=== PATIENT | female | born 1980 | race Caucasian/White ===

== ENCOUNTER → 2017-04-09 | Outpatient (CLI) | payer BC ==
[~2017-04-09] MED LIST: AMOXICILLIN500 MG PO; AVPAK AZITHROM250 M1 PO; BIAXIN500 MG PO; CLARITIN-D 10 M1 T21 PO; CLARITIN10 MG PO; FLONASE 0.05% 121 EA NAS; MOTRIN800 MG PO; PHENERGAN W/ DE30 ML PO; PREDNICOT10 MG PO; ZITHROMAX Z PA250 MG PO
[2017-04-09 16:07] LABS: EST GLOM FILT AFRICAN AMERICAN > 60 ml/min
== END | disposition home or self-care (01) ==
LOC: LAB 14:32
PROVIDERS: Internal Medicine
DX: Z01.818 Encounter for other preprocedural examination (principal)

== ENCOUNTER → 2017-04-10 | Outpatient (CLI) | payer BC | END | disposition home or self-care (01) | LOC: CT 02:45 | DX: N83.202 Unspecified ovarian cyst, left side (principal); D13.6 Benign neoplasm of pancreas; N30.00 Acute cystitis without hematuria; N94.89 Other specified conditions associated with female genital organs and menstrual cycle ==

== ENCOUNTER → 2017-04-22 | Outpatient (CLI) | payer BC | END | disposition home or self-care (01) | LOC: US 11:00 | DX: N83.209 Unspecified ovarian cyst, unspecified side (principal); N94.89 Other specified conditions associated with female genital organs and menstrual cycle ==

== ENCOUNTER 2020-04-17 06:29 | Emergency (ER) | payer SELFPAY ==
[~2020-04-17] VITALS: Ht 165.1 cm; Wt 84.8 kg
[2020-04-17 06:38] VITALS: BP 134/73
[2020-04-17 06:57] LABS: HEMATOCRIT 38.9 % (37.0-47.0); MEAN CELL VOLUME 89.4 fl (81.0-99.0); MEAN CORPUSCULAR HGB 29.4 pg (27.0-31.0); MEAN CORPUSCULAR HGB CONC 32.9 g/dl (33.0-37.0); MEAN PLATELET VOLUME 9.5 fl (9.6-12.3); PLATELET COUNT AUTOMATED 610 10*3/uL (130-400); RED BLOOD COUNT 4.35 10*6/uL (4.10-5.10); RED CELL DISTRI WIDTH 13.4 % (0-14.5); WHITE BLOOD COUNT 23.4 10*3/uL (4.8-10.8)
[2020-04-17 07:06] LABS: BILIRUBIN 1+ (NEGATIVE); BLOOD 3+ (NEGATIVE); CLARITY CLOUDY (CLEAR); COLOR YELLOW (YELLOW); GLUCOSE NEGATIVE (NEGATIVE); KETONE 2+ (NEGATIVE); LEUKO ESTERASE 3+ (NEGATIVE); NITRITE POSITIVE (NEGATIVE)
[2020-04-17 07:08] LABS: BACTERIA 3+; RBC 21-30 rbc/hpf (0-2); WBC TNTC wbc/hpf (0-5)
[2020-04-17 07:14] LABS: BUN 11 mg/dl (7-24); CHLORIDE 101 mmol/L (98-107); POTASSIUM 3.3 mmol/L (3.5-5.1); SODIUM 133 mmol/L (136-145)
[2020-04-17 07:25] LABS: TOTAL CELLS COUNTED 100 #CELLS
[2020-04-17 07:26] LABS: BURR CELLS FEW; PLATELET SUFFICIENCY HIGH (NORMAL); TOXIC GRANULATION SLIGHT; VACUOLATION OF NEUTROPHILS SLIGHT
[2020-04-17 08:23] LABS: ALBUMIN 2.9 gm/dl (3.1-4.5); TOTAL PROTEIN 7.8 gm/dL (6.4-8.2)
[2020-04-17 08:25] LABS: BILIRUBIN, DIRECT 0.3 mg/dL (0.0-0.2)
[2020-04-17] MEDS ORDERED: CIPRO500 MG PO (09:08)
== END 2020-04-17 09:10 | disposition home or self-care (01) ==
LOC: ED 06:29
PROVIDERS: Emergency Medicine
DX: N12 Tubulo-interstitial nephritis, not specified as acute or chronic (principal); Z79.899 Other long term (current) drug therapy

== ENCOUNTER → 2020-07-14 | Outpatient (CLI) | payer BC ==
[~2020-07-14] MED LIST changes: +CIPRO500 MG PO
== END | disposition home or self-care (01) ==
LOC: COVID19 08:07
PROVIDERS: ATTEND Physician Assistant
DX: U07.1 COVID-19 (principal)

== ENCOUNTER → 2021-05-16 | Outpatient (CLI) | payer BC | END | disposition home or self-care (01) | LOC: MAMMO 16:00 | PROVIDERS: ATTEND Physician Assistant | DX: Z12.31 Encounter for screening mammogram for malignant neoplasm of breast (principal) ==

== ENCOUNTER → 2022-03-16 | Outpatient (CLI) | payer BC | END | disposition home or self-care (01) | LOC: US 12:55 | PROVIDERS: ATTEND Physician Assistant | DX: M25.561 Pain in right knee (principal); M25.562 Pain in left knee ==

== ENCOUNTER → 2022-05-21 | Outpatient (CLI) | payer BC | END | disposition home or self-care (01) | LOC: MAMMO 11:30 | PROVIDERS: ATTEND Physician Assistant | DX: Z12.31 Encounter for screening mammogram for malignant neoplasm of breast (principal) ==

== ENCOUNTER → 2023-06-22 | Outpatient (CLI) | payer BC | END | disposition home or self-care (01) | LOC: LAB 08:56 → CT 10:00 | PROVIDERS: ATTEND Internal Medicine | DX: Z01.818 Encounter for other preprocedural examination (principal); R10.13 Epigastric pain; Z98.890 Other specified postprocedural states ==

== ENCOUNTER → 2023-07-15 | Outpatient (CLI) | payer BC | END | disposition home or self-care (01) | LOC: MAMMO 08:16 | PROVIDERS: ATTEND Internal Medicine | DX: Z12.31 Encounter for screening mammogram for malignant neoplasm of breast (principal); N64.89 Other specified disorders of breast ==

== ENCOUNTER → 2024-07-28 | Outpatient (CLI) | payer OTHER | END | disposition home or self-care (01) | LOC: MAMMO 16:49 | PROVIDERS: ATTEND Physician Assistant | DX: Z12.31 Encounter for screening mammogram for malignant neoplasm of breast (principal); R92.333 Mammographic heterogeneous density, bilateral breasts ==

== ENCOUNTER → 2025-08-16 | Outpatient (CLI) | payer OTHER | END | disposition home or self-care (01) | LOC: MAMMO 07-13 17:00 | PROVIDERS: ATTEND Physician Assistant | DX: Z12.31 Encounter for screening mammogram for malignant neoplasm of breast (principal); R92.333 Mammographic heterogeneous density, bilateral breasts ==